=== PATIENT | female | born 1960 | race Caucasian/White ===

== ENCOUNTER 2022-06-29 11:53 | Emergency (ER) | payer BC ==
[~2022-06-29 11:53] MED LIST: Iopamidol 370 76% 100 ML VIAL ONE
[2022-06-29] MEDS ORDERED: Morphine 4 MG/ML VIAL ONE (12:25)
[2022-06-29] MEDS ORDERED: Ondansetron PF 4 MG/2 ML Vial ONE (12:26)
[2022-06-29 13:13] LABS: #Eosinphils 0.1 10x3/uL (0.0-0.5); #Monocytes 0.6 10x3/uL (0.0-1.1); #Neutrophils 3.7 10x3/uL (1.5-8.4); %Basophils 0.4 % (0.0-2.0); %Eosinophils 1.6 % (0.0-6.0); %Lymphocytes 19.7 % (18.0-47.0); %Monocytes 11.4 % (0.0-10.0); %Neutrophils 66.7 % (40.0-75.0); Hemoglobin 13.2 g/dL (12.0-15.5); Mean Corpuscular HGB CONC 32.7 g/dL (32.0-36.0); Mean Corpuscular Hemoglobin 31.5 pg (27.0-33.0); Mean Corpuscular Volume 96.4 fl (81.6-98.3); Mean Platelet Volume 11.4 fl (7.4-10.4); Platelet Count 269 10x3/uL (150-450); RBC Distribution Width 13.8 % (11.5-14.5); Red Blood Cell (RBC) Count 4.19 10x6/uL (3.90-5.03); White Blood Cell (WBC) Count 5.5 10x3/uL (3.5-10.5)
[2022-06-29 13:29] LABS: INR-International Normal Ratio 2.4; PTT 41.3 sec (22.0-33.0); Prothrombin Time 25.3 sec (9.5-12.1)
[2022-06-29 13:32] LABS: ALT (SGPT) 17 U/L (8-55); AST (SGOT) 26 U/L (5-34); Albumin 4.1 g/dL (3.5-5.0); Alkaline Phosphatase 58 U/L (40-110); Anion Gap 15 mmol/L (10-20); BUN (Urea Nitrogen) 26 mg/dL (9.8-20.1); Bilirubin, Total 0.4 mg/dL (0.2-1.2); Calc. Creatinine Clearance 0 mL/min (70-130); Calcium 9.4 mg/dL (7.8-10.44); Carbon Dioxide 25 mmol/L (22-29); Chloride 104 mmol/L (98-107); Estimated GFR 53; Globulin 3.2 g/dL (2.4-3.5); Glucose 77 mg/dL (70-105); Potassium 4.2 mmol/L (3.5-5.1); Protein, Total 7.3 g/dL (6.0-8.3); Sodium 140 mmol/L (136-145)
== END 2022-06-29 15:00 | disposition home or self-care (01) ==
LOC: CSHERS 11:53
DX: S12.100A Unspecified displaced fracture of second cervical vertebra, initial encounter for closed fracture (principal); Z87.891 Personal history of nicotine dependence; W10.9XXA Fall (on) (from) unspecified stairs and steps, initial encounter
CPT/HCPCS: 70498; 80053; 85025; 85610; 85730; 96374; 96375; J2270; J2405; Q9967